=== PATIENT | female | born 1990 | race Caucasian/White ===

== ENCOUNTER 2017-05-07 03:38 | Emergency (ER) | payer OTHER, SELFPAY ==
[~2017-05-07] VITALS: Ht 162.6 cm; Wt 78.0 kg
[2017-05-07] MEDS ORDERED: ZYRT10CA PO (03:47)
[2017-05-07] MEDS ORDERED: OMEP40CA2 PO (03:47)
[2017-05-07] MEDS ORDERED: NORCO, ANEXSIA 5/325MG TABLET (HYDROcodone/ACETAMINOPHEN) PO ONE (04:00)
[2017-05-07 05:09] VITALS: BP 139/75
--- NOTE | 2017-05-07 09:02 | REP ---
Clinical: Trauma. Technique: AP, lateral, bilateral oblique and sunrise views of the right knee. Findings: Anterior and prepatellar soft tissue swelling is appreciated. Lateral view suggest a small area of subcutaneous emphysema inferior to the patella which may reflect laceration or puncture wound. No obvious acute fracture or dislocation identified. Impression: Swelling and possible small subcutaneous emphysema suggesting laceration/puncture wound. Signed by Dominguez Bernstein MD 05/07/2017 05:31 A
== END 2017-05-07 05:12 | disposition home or self-care (01) ==
LOC: M ED 03:38
DX: S80.01XA Contusion of right knee, initial encounter (principal); W01.198A Fall on same level from slipping, tripping and stumbling with subsequent striking against other object, initial encounter; Y92.099 Unspecified place in other non-institutional residence as the place of occurrence of the external cause; Y93.01 Activity, walking, marching and hiking; Y99.9 Unspecified external cause status

== ENCOUNTER → 2018-02-04 | Outpatient (REF) | payer OTHER ==
[2018-02-05 00:02] LABS: CHLAMYDIA DNA AMPLIFICATION NEGATIVE (NEGATIVE); GC DNA AMPLIFICATION NEGATIVE (NEGATIVE)
== END ==
LOC: M LAB REF 17:52
DX: Z34.82 Encounter for supervision of other normal pregnancy, second trimester (principal)

== ENCOUNTER → 2018-03-07 | Outpatient (CLI) | payer OTHER | LOC: M SMT 08:31 | DX: Z36.89 Encounter for other specified antenatal screening (principal); Z3A.19 19 weeks gestation of pregnancy | CPT/HCPCS: 76811 ==

== ENCOUNTER → 2018-03-28 | Outpatient (CLI) | payer OTHER | LOC: M RAD 10:16 | DX: Z34.82 Encounter for supervision of other normal pregnancy, second trimester (principal); Z3A.22 22 weeks gestation of pregnancy | CPT/HCPCS: 76816 ==

== ENCOUNTER → 2018-04-04 | Outpatient (REF) | payer OTHER ==
[2018-04-04 15:21] LABS: CHLAMYDIA DNA AMPLIFICATION NEGATIVE (NEGATIVE); GC DNA AMPLIFICATION NEGATIVE (NEGATIVE)
== END ==
LOC: M LAB REF 12:59
DX: Z34.82 Encounter for supervision of other normal pregnancy, second trimester (principal)

== ENCOUNTER → 2018-05-10 | Outpatient (CLI) | payer OTHER ==
[2018-05-10 17:37] LABS: HEMATOCRIT 33.4 % (36.0-47.0); HEMOGLOBIN 10.5 g/dl (12.0-15.5); MEAN CORPUSCULAR HEMOGLOBIN 24.9 pg (27.0-33.0); MEAN CORPUSCULAR HGB CONC 31.4 g/dl (32.0-36.5); MEAN CORPUSCULAR VOLUME 79.1 fl (80.0-96.0); PLATELET COUNT, AUTOMATED 268 10^3/uL (150-450); RED BLOOD COUNT 4.22 10^6/uL (4.00-5.40); RED CELL DISTRIBUTION WIDTH 13.2 % (11.5-14.5); WHITE BLOOD COUNT 10.2 10^3/uL (4.0-10.0)
[2018-05-10 17:59] LABS: GLUCOSE CHALLENGE TEST 1 HOUR 108 MG/DL (LESS THAN 140)
== END ==
LOC: M SMT 13:16
DX: Z34.82 Encounter for supervision of other normal pregnancy, second trimester (principal); Z36.89 Encounter for other specified antenatal screening
CPT/HCPCS: 82950

== ENCOUNTER → 2018-07-15 | Outpatient (REF) | payer OTHER | LOC: M LAB REF 13:05 | DX: Z34.83 Encounter for supervision of other normal pregnancy, third trimester (principal); Z3A.00 Weeks of gestation of pregnancy not specified | CPT/HCPCS: 87186 ==

== ENCOUNTER 2018-07-29 22:02 | Inpatient (IN) | payer OTHER ==
[2018-07-29] MEDS ORDERED: OXYTOCIN 30 UNITS IN 0.9% NaCl 500ML IV BAG (J2590) As Ordered (22:50)
[2018-07-29] MEDS ORDERED: PENICILLIN G POTASSIUM 5 MU VIAL As Ordered (23:07)
[2018-07-29 23:11] LABS: HEMOGLOBIN 12.1 g/dl (12.0-15.5); MEAN CORPUSCULAR HEMOGLOBIN 23.8 pg (27.0-33.0); MEAN CORPUSCULAR HGB CONC 31.8 g/dl (32.0-36.5); MEAN CORPUSCULAR VOLUME 74.7 fl (80.0-96.0); PLATELET COUNT, AUTOMATED 334 10^3/uL (150-450); RED BLOOD COUNT 5.09 10^6/uL (4.00-5.40); RED CELL DISTRIBUTION WIDTH 14.6 % (11.5-14.5); WHITE BLOOD COUNT 20.1 10^3/uL (4.0-10.0)
[2018-07-29] MEDS: PENICILLIN G POTASSIUM IV 5 MU in D5W MINI-BAG PLUS 100 ML IV (23:12)
[2018-07-30 00:43] LABS: ALT/SGPT 14 U/L (12-78); AST/SGOT 15 U/L (7-37); BILIRUBIN,TOTAL 0.4 MG/DL (0.2-1.0); CREATININE FOR GFR 0.72 MG/DL (0.55-1.30); GLOMERULAR FILTRATION RATE > 60.0 (>60); URIC ACID 6.3 MG/DL (2.6-6.0)
[2018-07-30 02:07] LABS: LDH LACTATE DEHYDROGENASE 191 U/L (84-246)
[2018-07-30] MEDS ORDERED: PENICILLIN G POTASSIUM IV 2.5 MU in APPROPRIATE DILUENT 1 EA IV (03:00)
[2018-07-30 06:10] LABS: CORD GAS ABE A -10.4; CORD GAS HCO3 A 15.7 MEQ/L; CORD GAS O2 SAT A 63.6 %; CORD GAS PCO2 A 35.7 mmHg; CORD GAS PH A 7.261 UNITS; CORD GAS PO2 A 29.8 mmHg; CORD GAS SBC A 15.7 MEQ/L; CORD GAS TCO2 A 16.8 MEQ/L
[2018-07-30 06:12] LABS: CORD GAS ABE V -10.3; CORD GAS HCO3 V 17.1 MEQ/L; CORD GAS PCO2 V 43.2 mmHg; CORD GAS PH V 7.216 UNITS; CORD GAS PO2 V 28.2 mmHg; CORD GAS SBC V 15.6 MEQ/L; CORD GAS TCO2 V 18.5 MEQ/L
[2018-07-30] MEDS: OXYTOCIN DRIP 30 UNITS in APPROPRIATE DILUENT 1 EA IV (07:31)
[2018-07-30] MEDS ORDERED: LIDOCAINE 1% MDV 20ML VIAL As Ordered (07:36)
[2018-07-30] MEDS: LIDOCAINE 1% MDV 20ML VIAL INFIL (07:38)
[2018-07-30] MEDS ORDERED: MEASLES,MUMPS,RUBELLA VACCINE INJ (MMR-II) (90707) SC (07:45)
[2018-07-30] MEDS ORDERED: MOM 30ML SUSPENSION UDC PO (07:45)
[2018-07-30] MEDS ORDERED: METHYLERGONOVINE MALEATE 0.2 MG TAB PO (07:45)
[2018-07-30] MEDS ORDERED: RHOGAM 300 MCG (1500 IU) INJ (J2790) IM (07:45)
[2018-07-30] MEDS: PRENATAL VITAMINS CHEWABLE TABLET PO (08:30)
[2018-07-30] MEDS: LR 1,000 ML IV (08:41)
[2018-07-30] MEDS: IBUPROFEN 800 MG TAB PO ×2 (15:57→23:55)
[2018-07-30] MEDS: FAMOTIDINE 20 MG TAB PO (23:55)
[2018-07-31] MEDS: PRENATAL VITAMINS CHEWABLE TABLET PO (09:00)
[2018-07-31] MEDS: FAMOTIDINE 20 MG TAB PO ×2 (09:00→21:00)
[2018-07-31] MEDS: ANUSOL HC CREAM 30GM TOP (09:33)
[2018-07-31] MEDS: DIBUCAINE 1% OINTMENT 30GM TOP (09:33)
[2018-07-31] MEDS: IBUPROFEN 800 MG TAB PO ×2 (09:34→21:18)
[2018-08-01 01:45] LABS: APPEARANCE, URINE CLEAR (CLEAR); BACTERIA, URINE AUTO NEGATIVE (NEGATIVE); BILIRUBIN, URINE AUTO NEGATIVE (NEGATIVE); BLOOD, URINE BLOOD 2+ (NEGATIVE); COLOR, URINE YELLOW (YELLOW); GLUCOSE, URINE (UA) AUTO NEGATIVE (NEGATIVE); KETONE, URINE AUTO NEGATIVE (NEGATIVE); LEUKOCYTE ESTERASE, URINE AUTO NEGATIVE (NEGATIVE); MUCUS, URINE SMALL (NEGATIVE); NITRITE, URINE AUTO NEGATIVE (NEGATIVE); PROTEIN, URINE AUTO NEGATIVE (NEGATIVE); RBC, URINE AUTO 73 /HPF (0-3); SPECIFIC GRAVITY URINE AUTO 1.008 (1.002-1.035); SQUAMOUS EPITHELIAL CELL UR AU 0 /HPF (0-6); UROBILINOGEN, URINE AUTO 0.2 mg/dL (0.0-2.0); WBC, URINE AUTO 4 /HPF (0-3)
[2018-08-01] MEDS: IBUPROFEN 800 MG TAB PO ×2 (06:29→14:42)
[2018-08-01] MEDS: FAMOTIDINE 20 MG TAB PO ×2 (08:27→21:52)
[2018-08-01] MEDS: PRENATAL VITAMINS CHEWABLE TABLET PO (08:27)
[2018-08-01] MEDS: ACETAMINOPHEN 500 MG TAB PO (21:52)
[2018-08-01] MEDS: DOCUSATE SODIUM 100 MG CAP PO (21:52)
[2018-08-02] MEDS: IBUPROFEN 800 MG TAB PO ×2 (03:24→13:48)
[2018-08-02] MEDS: FAMOTIDINE 20 MG TAB PO (08:30)
[2018-08-02] MEDS: PRENATAL VITAMINS CHEWABLE TABLET PO (08:30)
[2018-08-02] MEDS: ACETAMINOPHEN 500 MG TAB PO (10:11)
[2018-08-02] MEDS: TAMSULOSIN 0.4 MG CAP PO (10:46)
== END 2018-08-02 15:45 | disposition home or self-care (01) | DRG 560 ==
LOC: M LDO 22:02 → M OBS 07-30 09:27 → M LDI 22:40
PROC: 10D07Z6 Extraction of Products of Conception, Vacuum, Via Natural or Artificial Opening (ICD-10-PCS; principal; 2018-07-30)
PROC: 0W8NXZZ Division of Female Perineum, External Approach (ICD-10-PCS; 2018-07-30)
DX: O99.824 Streptococcus B carrier state complicating childbirth (principal); Z37.0 Single live birth; Z3A.39 39 weeks gestation of pregnancy; O75.81 Maternal exhaustion complicating labor and delivery

== ENCOUNTER → 2018-09-20 | Outpatient (REF) | payer OTHER ==
[~2018-09-20] MED LIST: MAPA500T17 PO; MOTR200T44 PO; OMEP40CA2 PO; PRENTAB9 PO; ZYRT10CA PO
== END ==
LOC: M LAB REF 17:18
PROVIDERS: ATTEND Obstetrics & Gynecology
DX: R30.0 Dysuria (principal)

== ENCOUNTER → 2018-11-22 | Outpatient (REF) | payer OTHER ==
[~2018-11-22] MED LIST changes: -MAPA500T17 PO; +MAPA500T2 PO
== END ==
LOC: M LAB REF 18:14
PROVIDERS: ATTEND Obstetrics & Gynecology
DX: Z12.4 Encounter for screening for malignant neoplasm of cervix (principal)

== ENCOUNTER → 2020-08-28 | Outpatient (REF) | payer OTHER ==
[~2020-08-28] MED LIST changes: -OMEP40CA2 PO; +OMEP40CA97 PO
[2020-08-28 16:56] LABS: BASO % 0.2 % (0.0-1.0); EOS # 0.2 10^3/uL (0.0-0.5); EOS % 1.6 % (0.0-3.0); HEMATOCRIT 43.4 % (36.0-47.0); HEMOGLOBIN 13.3 g/dl (12.0-15.5); LYMPH # 2.5 10^3/uL (1.5-5.0); LYMPH % 27.1 % (24.0-44.0); MEAN CORPUSCULAR HEMOGLOBIN 24.2 pg (27.0-33.0); MEAN CORPUSCULAR HGB CONC 30.6 g/dl (32.0-36.5); MEAN CORPUSCULAR VOLUME 79.1 fl (80.0-96.0); MONO # 0.8 10^3/uL (0.0-0.8); NEUTROPHILS # 5.8 10^3/uL (1.5-8.5); NEUTROPHILS % 61.7 % (36.0-66.0); PLATELET COUNT, AUTOMATED 293 10^3/uL (150-450); RED BLOOD COUNT 5.49 10^6/uL (4.00-5.40); WHITE BLOOD COUNT 9.4 10^3/uL (4.0-10.0)
[2020-08-28 17:34] LABS: ALBUMIN 4.1 GM/DL (3.2-5.2); ALT/SGPT 15 U/L (12-78); BILIRUBIN,TOTAL 0.7 MG/DL (0.2-1.0); BLOOD UREA NITROGEN 11 MG/DL (7-18); CALCIUM LEVEL 9.4 MG/DL (8.5-10.1); CARBON DIOXIDE LEVEL 26 MEQ/L (21-32); CHLORIDE LEVEL 104 MEQ/L (98-107); CREATININE FOR GFR 0.74 MG/DL (0.55-1.30); GLOMERULAR FILTRATION RATE > 60.0 (>60); GLUCOSE, FASTING 90 MG/DL (70-100); LIPASE 187 U/L (73-393); POTASSIUM SERUM 4.5 MEQ/L (3.5-5.1); SODIUM LEVEL 137 MEQ/L (136-145); TOTAL PROTEIN 7.5 GM/DL (6.4-8.2)
== END ==
LOC: M LAB REF 16:24
PROVIDERS: ATTEND Physician Assistant
DX: R10.11 Right upper quadrant pain (principal); R53.83 Other fatigue

== ENCOUNTER → 2020-10-09 | Outpatient (REF) | payer OTHER ==
[2020-10-09 13:44] LABS: FREE T4 1.04 NG/DL (0.76-1.46); THYROGLOBULIN ANTIBODY < 15.0 U/ML (<60.0); THYROID PEROXIDASE ANTIBODY < 28.0 U/ML (<60.0)
== END ==
LOC: M LAB REF 12:26
PROVIDERS: ATTEND Physician Assistant
DX: R94.6 Abnormal results of thyroid function studies (principal)

== ENCOUNTER → 2020-10-21 | Outpatient (CLI) | payer OTHER ==
--- NOTE | 2020-10-21 08:04 | REP ---
INDICATION: RT UPPER QUADRANT PAIN COMPARISON: None. TECHNIQUE: Real time alcocer scale ultrasound examination using curved array transducer. FINDINGS: Liver and pancreas are normal in contour, size, and echogenicity without focal hepatic or pancreatic lesions identified. The gallbladder is normal and without gallstones, wall thickening, or pericholecystic fluid. No biliary ductal dilatation is appreciated and the common bile duct measures 4.2 mm diameter. Right kidney is normal in reniform shape without hydronephrosis and measures 10.9 x 5.1 x 4.2 cm. Visualized portions of the aorta are normal. No ascites in the visualized right upper quadrant. IMPRESSION: Normal limited right upper quadrant ultrasound <Electronically signed by Dominguez Bernstein > 10/21/20 0800
== END ==
LOC: M RAD 06:36
PROVIDERS: ATTEND Physician Assistant
DX: R10.11 Right upper quadrant pain (principal)

== ENCOUNTER → 2022-06-01 | Outpatient (REF) | payer BC ==
[~2022-06-01] MED LIST changes: +OMEP40CA4 PO; -OMEP40CA97 PO
== END ==
LOC: M PLALAB 16:22
PROVIDERS: ATTEND Obstetrics & Gynecology
DX: Z01.419 Encounter for gynecological examination (general) (routine) without abnormal findings (principal)

== ENCOUNTER → 2022-10-12 | Outpatient (REF) | payer BC ==
[2022-10-12 13:30] LABS: CHOLESTEROL RISK RATIO 3.34 (<5); LDL CHOLESTEROL 117.2 MG/DL (<100)
== END ==
LOC: M LAB REF 12:15
PROVIDERS: ATTEND Nurse Practitioner Family
DX: Z13.228 Encounter for screening for other metabolic disorders (principal)

== ENCOUNTER → 2023-01-25 | Outpatient (REF) | payer BC ==
[2023-01-25 13:18] LABS: CHOLESTEROL RISK RATIO 2.79 (<5)
== END ==
LOC: M LAB REF 12:13
PROVIDERS: ATTEND Nurse Practitioner Family
DX: R79.89 Other specified abnormal findings of blood chemistry (principal)

== ENCOUNTER → 2023-05-17 | Outpatient (REF) | payer BC ==
[2023-05-17 13:01] LABS: BASO % 0.4 % (0.0-1.0); EOS # 0.2 10^3/uL (0.0-0.5); HEMATOCRIT 36.8 % (36.0-47.0); LYMPH # 2.7 10^3/uL (1.5-5.0); MEAN CORPUSCULAR HEMOGLOBIN 21.9 pg (27.0-33.0); MEAN CORPUSCULAR HGB CONC 29.9 g/dl (32.0-36.5); MEAN CORPUSCULAR VOLUME 73.2 fl (80.0-96.0); MONO # 0.9 10^3/uL (0.0-0.8); MONO % 9.3 % (2.0-8.0); NEUTROPHILS # 5.5 10^3/uL (1.5-8.5); NEUTROPHILS % 58.9 % (36.0-66.0); PLATELET COUNT, AUTOMATED 340 10^3/uL (150-450); RED BLOOD COUNT 5.03 10^6/uL (4.00-5.40); WHITE BLOOD COUNT 9.3 10^3/uL (4.0-10.0)
[2023-05-17 13:09] LABS: THYROID STIMULATING HORMONE 5.121 uIU/ML (0.55-4.78)
[2023-05-17 13:10] LABS: ALBUMIN 3.5 G/DL (3.2-5.2); ALKALINE PHOSPHATASE 96 U/L (46-116); ALT/SGPT 16 U/L (7.0-40); AST/SGOT 9 U/L (<34); BILIRUBIN,TOTAL 0.4 MG/DL (0.3-1.2); BLOOD UREA NITROGEN 8 MG/DL (9-23); CALCIUM LEVEL 9.3 MG/DL (8.5-10.1); CARBON DIOXIDE LEVEL 24 MMOL/L (20-31); CHLORIDE LEVEL 107 MMOL/L (98-107); CHOLESTEROL LEVEL 213 MG/DL (<200); CHOLESTEROL RISK RATIO 3.11 (<5); CREATININE FOR GFR 0.79 MG/DL (0.55-1.30); GLOMERULAR FILTRATION RATE > 60.0 (>60); GLUCOSE, FASTING 83 MG/DL (60-100); HDL CHOLESTEROL 68.4 MG/DL (>40); LDL CHOLESTEROL 112.8 MG/DL (<100); NON-HDL-C 144.6 MG/DL; POTASSIUM SERUM 4.3 MMOL/L (3.5-5.1); SODIUM LEVEL 141 MMOL/L (136-145); TOTAL 25(OH) VITAMIN D 28.9 NG/ML (20.0-100.0); TOTAL PROTEIN 6.8 G/DL (5.7-8.2); TRIGLYCERIDES LEVEL 159 MG/DL (<150)
== END ==
LOC: M LAB REF 11:46
PROVIDERS: ATTEND Nurse Practitioner Family
DX: R79.89 Other specified abnormal findings of blood chemistry (principal); Z13.228 Encounter for screening for other metabolic disorders

== ENCOUNTER → 2023-07-12 | Outpatient (REF) | payer BC ==
[2023-07-12 13:45] LABS: FREE T4 0.96 NG/DL (0.89-1.76); THYROID STIMULATING HORMONE 5.911 uIU/ML (0.55-4.78)
== END ==
LOC: M LAB REF 11:45
PROVIDERS: ATTEND Nurse Practitioner Family
DX: R94.6 Abnormal results of thyroid function studies (principal)

== ENCOUNTER → 2023-09-15 | Outpatient (REF) | payer BC ==
[2023-09-15 15:20] LABS: CHOLESTEROL RISK RATIO 2.63 (<5); FREE T4 1.04 NG/DL (0.89-1.76); HDL CHOLESTEROL 73.5 MG/DL (>40); LDL CHOLESTEROL 96.9 MG/DL (<100); NON-HDL-C 120.5 MG/DL; THYROID STIMULATING HORMONE 3.099 uIU/ML (0.55-4.78)
== END ==
LOC: M LAB REF 13:56
PROVIDERS: ATTEND Nurse Practitioner Family
DX: R94.6 Abnormal results of thyroid function studies (principal); R79.89 Other specified abnormal findings of blood chemistry

== ENCOUNTER → 2023-09-22 | Outpatient (REF) | payer BC | LOC: M LAB REF 16:15 | PROVIDERS: ATTEND Nurse Practitioner Family | DX: B34.9 Viral infection, unspecified (principal) ==

== ENCOUNTER → 2024-06-09 | Outpatient (REF) | payer BC ==
[2024-06-09 14:37] LABS: BASO % 0.3 % (0.0-1.0); EOS # 0.1 10^3/uL (0.0-0.5); EOS % 1.8 % (0.0-3.0); HEMATOCRIT 37.5 % (36.0-47.0); HEMOGLOBIN 11.4 g/dl (12.0-15.5); LYMPH # 2.5 10^3/uL (1.5-5.0); LYMPH % 31.9 % (24.0-44.0); MEAN CORPUSCULAR HEMOGLOBIN 23.7 pg (27.0-33.0); MEAN CORPUSCULAR HGB CONC 30.4 g/dl (32.0-36.5); MEAN CORPUSCULAR VOLUME 77.8 fl (80.0-96.0); MONO # 0.8 10^3/uL (0.0-0.8); MONO % 10.4 % (2.0-8.0); NEUTROPHILS # 4.3 10^3/uL (1.5-8.5); NEUTROPHILS % 55.1 % (36.0-66.0); PLATELET COUNT, AUTOMATED 286 10^3/uL (150-450); RED BLOOD COUNT 4.82 10^6/uL (4.00-5.40); WHITE BLOOD COUNT 7.7 10^3/uL (4.0-10.0)
[2024-06-09 14:59] LABS: ALBUMIN 3.6 G/DL (3.2-5.2); ALKALINE PHOSPHATASE 79 U/L (46-116); ALT/SGPT 15 U/L (7.0-40); AST/SGOT 13 U/L (<34); BILIRUBIN,TOTAL 0.5 MG/DL (0.3-1.2); BLOOD UREA NITROGEN 10 MG/DL (9-23); CALCIUM LEVEL 9.3 MG/DL (8.5-10.1); CARBON DIOXIDE LEVEL 25 MMOL/L (20-31); CHLORIDE LEVEL 109 MMOL/L (98-107); CHOLESTEROL LEVEL 195 MG/DL (<200); CHOLESTEROL RISK RATIO 2.69 (<5); CREATININE FOR GFR 0.69 MG/DL (0.55-1.30); GLOMERULAR FILTRATION RATE > 60.0 (>60); GLUCOSE, FASTING 84 MG/DL (60-100); HDL CHOLESTEROL 72.3 MG/DL (>40); LDL CHOLESTEROL 95.7 MG/DL (<100); MAGNESIUM LEVEL 1.9 MG/DL (1.8-2.4); NON-HDL-C 122.7 MG/DL; POTASSIUM SERUM 4.7 MMOL/L (3.5-5.1); SODIUM LEVEL 140 MMOL/L (136-145); TOTAL PROTEIN 6.7 G/DL (5.7-8.2); TRIGLYCERIDES LEVEL 135 MG/DL (<150)
[2024-06-09 15:02] LABS: FREE T4 1.19 NG/DL (0.89-1.76)
[2024-06-09 15:04] LABS: THYROID STIMULATING HORMONE 3.512 uIU/ML (0.55-4.78)
== END ==
LOC: M LAB REF 13:00
PROVIDERS: ATTEND Nurse Practitioner Family
DX: E03.9 Hypothyroidism, unspecified (principal); E66.9 Obesity, unspecified

== ENCOUNTER → 2024-07-19 | Outpatient (REF) | payer BC ==
[2024-07-19 14:32] LABS: BASO % 0.4 % (0.0-1.0); EOS # 0.2 10^3/uL (0.0-0.5); EOS % 2.2 % (0.0-3.0); HEMATOCRIT 39.4 % (36.0-47.0); LYMPH # 2.4 10^3/uL (1.5-5.0); MEAN CORPUSCULAR HEMOGLOBIN 23.8 pg (27.0-33.0); MEAN CORPUSCULAR HGB CONC 30.5 g/dl (32.0-36.5); MEAN CORPUSCULAR VOLUME 78.2 fl (80.0-96.0); MONO # 0.8 10^3/uL (0.0-0.8); MONO % 10.8 % (2.0-8.0); NEUTROPHILS # 4.2 10^3/uL (1.5-8.5); NEUTROPHILS % 55.1 % (36.0-66.0); PLATELET COUNT, AUTOMATED 306 10^3/uL (150-450); RED BLOOD COUNT 5.04 10^6/uL (4.00-5.40); WHITE BLOOD COUNT 7.7 10^3/uL (4.0-10.0)
[2024-07-19 14:57] LABS: FERRITIN 20.2 NG/ML (7.3-270.7)
== END ==
LOC: M LAB REF 12:06
PROVIDERS: ATTEND Nurse Practitioner Family
DX: D64.9 Anemia, unspecified (principal)

== ENCOUNTER → 2024-10-19 | Outpatient (REF) | payer BC ==
[2024-10-19 14:03] LABS: BASO % 0.5 % (0.0-1.0); EOS # 0.2 10^3/uL (0.0-0.5); EOS % 2.7 % (0.0-3.0); HEMATOCRIT 40.8 % (36.0-47.0); HEMOGLOBIN 12.5 g/dl (12.0-15.5); LYMPH # 2.5 10^3/uL (1.5-5.0); MEAN CORPUSCULAR HEMOGLOBIN 23.8 pg (27.0-33.0); MEAN CORPUSCULAR HGB CONC 30.6 g/dl (32.0-36.5); MEAN CORPUSCULAR VOLUME 77.7 fl (80.0-96.0); MONO # 0.8 10^3/uL (0.0-0.8); MONO % 12.3 % (2.0-8.0); NEUTROPHILS % 46.2 % (36.0-66.0); PLATELET COUNT, AUTOMATED 307 10^3/uL (150-450); RED BLOOD COUNT 5.25 10^6/uL (4.00-5.40); WHITE BLOOD COUNT 6.6 10^3/uL (4.0-10.0)
[2024-10-19 14:39] LABS: FERRITIN 31.8 NG/ML (7.3-270.7); THYROID STIMULATING HORMONE 3.027 uIU/ML (0.55-4.78)
[2024-10-19 14:40] LABS: IRON (FE) 123 UG/DL (50-170)
[2024-10-19 14:41] LABS: PERCENT SATURATION 36.6 % (13.2-45.0); TOTAL IRON BINDING CAPACITY 336 UG/DL (250-425)
[2024-10-19 14:42] LABS: VITAMIN B12 LEVEL 608 PG/ML (211-911)
[2024-10-19 14:53] LABS: FOLATE > 24.0 NG/ML (>5.4)
== END ==
LOC: M LAB REF 12:25
PROVIDERS: ATTEND Nurse Practitioner Family
DX: D64.9 Anemia, unspecified (principal); E03.9 Hypothyroidism, unspecified

== ENCOUNTER → 2025-06-14 | Outpatient (REF) | payer BC ==
[2025-06-14 14:57] LABS: TOTAL 25(OH) VITAMIN D 32.3 NG/ML (20.0-100.0)
[2025-06-14 14:58] LABS: ALT/SGPT 19 U/L (7.0-40); AST/SGOT 19 U/L (<34); CALCIUM LEVEL 9.5 MG/DL (8.5-10.1); CARBON DIOXIDE LEVEL 27 MMOL/L (20-31); CHLORIDE LEVEL 106 MMOL/L (98-107); CHOLESTEROL LEVEL 204 MG/DL (<200); CHOLESTEROL RISK RATIO 2.74 (<5); CREATININE FOR GFR 0.75 MG/DL (0.55-1.30); GLOMERULAR FILTRATION RATE > 90.0 (>60); IRON (FE) 87 UG/DL (50-170); LDL CHOLESTEROL 101.0 MG/DL (<100); MAGNESIUM LEVEL 1.9 MG/DL (1.8-2.4); NON-HDL-C 129.8 MG/DL; PERCENT SATURATION 28.4 % (13.2-45.0); POTASSIUM SERUM 4.9 MMOL/L (3.5-5.1); SODIUM LEVEL 143 MMOL/L (136-145); TRIGLYCERIDES LEVEL 144 MG/DL (<150)
[2025-06-14 15:06] LABS: ESTIMATED AVERAGE GLUCOSE 105.0 MG/DL (60-110)
[2025-06-14 15:13] LABS: BASO # 0.0 10^3/uL (0.0-0.2); BASO % 0.3 % (0.0-1.0); EOS # 0.1 10^3/uL (0.0-0.5); EOS % 1.0 % (0.0-3.0); LYMPH # 2.8 10^3/uL (1.5-5.0); LYMPH % 31.6 % (24.0-44.0); MONO # 0.9 10^3/uL (0.0-0.8); MONO % 9.8 % (2.0-8.0); NEUTROPHILS # 5.0 10^3/uL (1.5-8.5); NEUTROPHILS % 57.1 % (36.0-66.0); PLATELET COUNT, AUTOMATED 318 10^3/uL (150-450)
== END ==
LOC: M LAB REF 14:10
PROVIDERS: ATTEND Nurse Practitioner Family
DX: E66.9 Obesity, unspecified (principal); E55.9 Vitamin D deficiency, unspecified; E03.9 Hypothyroidism, unspecified; D64.9 Anemia, unspecified

== ENCOUNTER 2025-09-11 06:42 | Day surgery (SDC) | payer BC ==
[~2025-09-11] VITALS: Ht 162.6 cm; Wt 91.1 kg
[~2025-09-11 06:42] MED LIST changes: +D-20TAB PO; +FAMO1TAB11 PO; +IRON1TAB2 PO; +LEVO25TA5 PO
[2025-09-11] MEDS ORDERED: [UNRECOGNIZED DRUG - OTHER] PO (07:05)
[2025-09-11] MEDS ORDERED: LIDOCAINE 2% 100 MG/5 ML SDV (FOR ANES.) As Ordered ONE (07:14)
[2025-09-11] MEDS ORDERED: GLYCOPYRROLATE INJ 0.2 MG/ML 2 ML VIAL As Ordered ONE (07:14)
[2025-09-11 07:57] VITALS: TEMP 97.1
[2025-09-11 08:25] VITALS: BP 141/69; O2SAT 99
== END 2025-09-11 08:26 | disposition home or self-care (01) ==
LOC: M OPP 06:42
PROVIDERS: ATTEND Surgery
DX: K62.0 Anal polyp (principal); K57.30 Diverticulosis of large intestine without perforation or abscess without bleeding; K63.2 Fistula of intestine; D50.9 Iron deficiency anemia, unspecified; Z79.899 Other long term (current) drug therapy
CPT/HCPCS: 43235; 45380; 88305; J1596